=== PATIENT | male | born 1970 | race Caucasian/White ===

== ENCOUNTER → 2022-01-26 09:22 | Outpatient (CLI) | payer BC, SELFPAY ==
--- NOTE | 2022-01-26 | DI.ECHO.S_ITS ---
[facility]---------+ [facility] +---------+ : : [address] : : : : [id number] : : : : Phone: [phone] +---------+ Echocardiogram Report + + :Name: SUJIT BURT Study Date: 01/26/2022 Height: 76 in : :[facility] ReadingLocation: Weight: 300 lb : : Gender: Male BSA: 2.6 m2 : :: 1970 Age: 52 yrs BP: 164/98 mmHg: :Reason For Study: VIRAL CARDIOMYOPATHY : :Ordering Physician: PARAS, : :VIOLA Performed By: Marian Arias : :Referring: VIOLA CRAIN : + + Interpretation Summary The ejection fraction is estimated to be 50-55%. Diastolic parameters suggest probable normal left ventricular diastolic function and normal filling pressures. The right ventricle is normal in size and function. No significant valvular abnormalities. Unable to estimate PASP. The ascending aorta is mildly enlarged. Procedure: A two-dimensional transthoracic echocardiogram with color flow and Doppler was performed. The study quality was technically adequate. There is no prior echocardiogram noted for this patient. The patient was in sinus rhythm with heart rates between 77-88 bpm during the exam. Left Ventricle: The left ventricle is normal in size and wall thickness. The ejection fraction is estimated to be 50-55%. Diastolic parameters suggest probable normal left ventricular diastolic function and normal filling pressures. Right Ventricle: The right ventricle is normal in size and function. Atria: The left atrial size is normal. Right atrial size is normal. There is no Doppler evidence for an interatrial shunt. Mitral Valve: The mitral valve is normal in structure and function. There is mild mitral annular calcification. There is trace mitral regurgitation. Aortic Valve: The aortic valve is trileaflet. The aortic valve opens well. There is no aortic valve stenosis. No aortic regurgitation is present. Tricuspid Valve: The tricuspid valve is normal in structure and function. There is a trace or physiologic amount of tricuspid regurgitation. Pulmonary artery pressures cannot be estimated because of the lack of a measurable TR jet velocity. Pulmonic Valve: The pulmonic valve leaflets are thin and pliable; valve motion is normal. There is no pulmonic valvular regurgitation. Great Vessels: The aortic root is normal size. The ascending aorta is mildly enlarged. The IVC is of normal diameter and collapses greater than 50% with a sniff. This suggests a low right atrial pressure of 3 mm Hg. Pericardium/ Pleura There is no pericardial effusion. There is no pleural effusion. MMode/2D Measurements & Calculations LVIDd: 5.1 cm LVOT diam: 2.2 cm LVIDs: 3.7 cm Ao root diam: 3.8 cm FS: 28.1 % asc Aorta Diam: 3.9 cm IVSd: 0.83 cm Ao Arch Diam (Prox Trans): 3.5 cm LVPWd: 0.81 cm LV moffett. diameter/BSA (cm/m^2): 1.9 LV sys. diameter/BSA (cm/m^2): 1.4 LA A2 area: 22.4 cm2 RA long axis: 5.4 cm LA A4 area: 20.2 cm2 RA area: 15.5 cm2 LA length (vol): 5.8 cm RA vol: 38.2 ml LA vol: 66.4 ml RA : 14.5 ml/m2 LA vol index: 25.2 ml/m2 RVD1 (basal): 3.9 cm RVD2 (mid): 3.3 cm TAPSE: 1.7 cm Doppler Measurements & Calculations Ao V2 max: 124.3 cm/sec LVOT Max Maximo: 102.6 cm/sec Ao V2 mean: 96.0 cm/sec LV V1 max P.2 mmHg Ao max P.2 mmHg LV V1 VTI: 20.0 cm Ao mean P.9 mmHg VENESSA(I,D): 3.0 cm2 Ao V2 VTI: 26.0 cm VENESSA(V,D): 3.2 cm2 sev ratio: 0.77 VENESSA indexed to BSA (cm^2/m^2): 1.1 MV E max maximo: 62.4 cm/sec PA V2 max: 105.9 cm/sec MV A max maximo: 82.5 cm/sec PA V2 mean: 68.4 cm/sec MV E/A: 0.76 PA mean P.2 mmHg Med Peak E' Maximo: 9.5 cm/sec PA pr(Accel): 48.2 mmHg E/E' med: 6.6 Lat Peak E' Maximo: 10.9 cm/sec E/E' lat: 5.7 E/e' average: 6.1 MV dec time: 0.17 sec SV(LVOT): 78.1 ml Reading Physician:03:37 PM
== END ==
PROVIDERS: Referring Provider Internal Medicine Cardiovascular Disease; Visit Provider Internal Medicine Cardiovascular Disease
DX: R55 Syncope and collapse (principal); B33.24 Viral cardiomyopathy; I77.89 Other specified disorders of arteries and arterioles
CPT/HCPCS: 93306

== ENCOUNTER → 2023-03-22 06:47 | Outpatient (CLI) | payer OTHER, SELFPAY ==
--- NOTE | 2023-03-22 | DI.ECHO.S_ITS ---
[facility]---------+ [facility] +---------+ : : [address] : : : : [id number] : : : : Phone: [phone] +---------+ Echocardiogram Report + + :Name: SUJIT BURT Study Date: 03/22/2023 Height: 76 in : :[facility] ReadingLocation: Weight: 305 lb : : Gender: Male BSA: 2.7 m2 : :: 1970 Age: 53 yrs BP: 150/96 mmHg: :Reason For Study: CARDIOMYOPATHY : :Ordering Physician: PARAS, : :VIOLA Performed By: Marian Arias : :Referring: VIOLA CRAIN : + + Interpretation Summary The ejection fraction is estimated to be 55-60%. Diastolic parameters suggest probable normal left ventricular diastolic function and normal filling pressures. The right ventricle is normal in size and function. Pulmonary artery pressures cannot be estimated because of the lack of a measurable TR jet velocity. No significant valvular abnormality. No significant change from last study in 01/2022. Procedure: A two-dimensional transthoracic echocardiogram with color flow and Doppler was performed. The study quality was technically adequate. Comparison is made with the echocardiogram of 01/26/2022. The patient was in sinus rhythm with heart rates between 63-70 bpm during the exam. Left Ventricle: The left ventricle is normal in size. There is mild concentric left ventricular hypertrophy. The ejection fraction is estimated to be 55-60%. There are no obvious focal wall motion abnormalities noted but poor endocardial definition reduces the sensitivity for the detection of such. Diastolic parameters suggest probable normal left ventricular diastolic function and normal filling pressures. Right Ventricle: The right ventricle is normal in size and function. Atria: The left atrial size is normal. Right atrial size is normal. There is no Doppler evidence for an interatrial shunt. Mitral Valve: The mitral valve is normal in structure and function. There is mild mitral annular calcification. There is trace mitral regurgitation. Aortic Valve: The aortic valve is trileaflet. The aortic valve opens well. There is no aortic valve stenosis. No aortic regurgitation is present. Tricuspid Valve: The tricuspid valve is normal in structure but is abnormal in function. There is a trace or physiologic amount of tricuspid regurgitation. Pulmonary artery pressures cannot be estimated because of the lack of a measurable TR jet velocity. Pulmonic Valve: The pulmonic valve leaflets are thin and pliable; valve motion is normal. There is no pulmonic valvular regurgitation. Great Vessels: The aortic root is normal size. The dimensions of the ascending aorta are normal. The inferior vena cava was not well visualized. Pericardium/ Pleura There is no pericardial effusion. There is no pleural effusion. MMode/2D Measurements & Calculations LVIDd: 5.0 cm LVOT diam: 2.4 cm LVIDs: 3.6 cm Ao root diam: 3.8 cm FS: 28.6 % asc Aorta Diam: 3.8 cm EPSS: 0.81 cm IVSd: 1.0 cm LVPWd: 1.1 cm LV moffett. diameter/BSA (cm/m^2): 1.9 LV sys. diameter/BSA (cm/m^2): 1.3 LA A2 area: 23.9 cm2 RA long axis: 5.6 cm LA A4 area: 19.8 cm2 RA area: 18.1 cm2 LA length (vol): 6.5 cm RA vol: 49.4 ml LA vol: 61.9 ml RA : 18.6 ml/m2 LA vol index: 23.4 ml/m2 RVD1 (basal): 3.5 cm RVD2 (mid): 3.9 cm TAPSE: 2.1 cm Doppler Measurements & Calculations Ao V2 max: 123.9 cm/sec LVOT Max Maximo: 90.7 cm/sec Ao V2 mean: 83.1 cm/sec LV V1 max P.3 mmHg Ao max P.1 mmHg LV V1 VTI: 22.2 cm Ao mean P.2 mmHg VENESSA(I,D): 3.5 cm2 Ao V2 VTI: 28.5 cm VENESSA(V,D): 3.3 cm2 sev ratio: 0.78 VENESSA indexed to BSA (cm^2/m^2): 1.3 MV E max maximo: 79.6 cm/sec PA V2 max: 98.9 cm/sec MV A max maximo: 54.5 cm/sec PA V2 mean: 67.4 cm/sec MV E/A: 1.5 PA mean P.1 mmHg Med Peak E' Maximo: 8.5 cm/sec PA pr(Accel): 43.0 mmHg E/E' med: 9.4 Lat Peak E' Maximo: 11.7 cm/sec E/E' lat: 6.8 E/e' average: 8.1 MV dec time: 0.22 sec [facility] 100.2 ml Reading Physician:AUREA
== END ==
PROVIDERS: Referring Provider Internal Medicine Cardiovascular Disease; Visit Provider Internal Medicine Cardiovascular Disease
DX: B33.24 Viral cardiomyopathy (principal); R55 Syncope and collapse; I34.81 Nonrheumatic mitral (valve) annulus calcification
CPT/HCPCS: 93306